=== PATIENT | male | born 1960 | race Two or more races ===

== ENCOUNTER 2023-06-07 18:04 | Inpatient (IN) | payer MEDICAID, OTHER ==
[~2023-06-07] VITALS: Ht 182.9 cm; Wt 118.0 kg
[2023-06-07] MEDS: DOPamine 1600MCG/ML D5W 250 ML IV SCH (18:35)
[2023-06-07] MEDS: SODIUM BICARB 8.4% 50Meq/50ml SYR Vial IV ONE ×4 (18:39→20:03)
[2023-06-07] MEDS: NOREPINEPHRINE 8 MG/250ML KIT 250 ML IV SCH (18:46)
[2023-06-07] MEDS: cefTRIAXone 1GM/50ML D5W 50 ML IV ONE (18:51)
[2023-06-07 18:52] LABS: Urine Bacteria NONE SEEN /hpf (None Seen); Urine Blood TRACE /uL (Negative); Urine Clarity HAZY (Clear); Urine Color Yellow (Yellow); Urine Mucus FEW (None Seen); Urine Protein, UAD 1+ (Negative); Urine Specific Gravity 1.017 (1.001-1.035); Urine Urobilinogen Normal (Negative); Urine WBC 4 /hpf (0 - 3); Urine pH 6.5 (5.0-8.0)
[2023-06-07] MEDS: SODIUM CHLORIDE 0.9% 1,000 ML IV ONE (18:52)
[2023-06-07 18:54] LABS: White Blood Cell 14.7 10^3/uL (4.4-10.8)
[2023-06-07 18:55] LABS: Hematocrit 37.9 % (41.0-53.0); Hemoglobin 11.9 g/dL (13.5-17.5); Mean Corpuscular Hemoglobin 26.9 pg (28.0-32.0); Mean Corpuscular Hgb Conc. 31.3 g/dL (32.0-36.0); Red Blood Cells 4.41 10^6/uL (4.5-5.90); Red Cell Distribution Width 15.7 % (11.8-14.3)
[2023-06-07] MEDS: NOREPINEPHRINE 8 MG/250ML KIT 250 ML IV ONE (18:55)
[2023-06-07 18:57] LABS: Basophils % (manual) 0 (0.0-2.0); Blast Cells 0; Metamyelocytes % 0; Myelocytes % 0; Promyelocytes % 0; Reactive Lymphocytes 0
[2023-06-07 18:58] LABS: Amphetamine Screen, Urine Pos (NEGATIVE); Barbiturate Scree,Urine Neg (NEGATIVE); Benzodiazephine Screen, Urine Neg (NEGATIVE); Cocaine Screen, Urine Neg (NEGATIVE); Opiate Scree,Urine Neg (NEGATIVE); Phencyclidine Screen, Urine Neg (NEGATIVE)
[2023-06-07] MEDS: VANCOMYCIN 1GM/200ML 200 ML IV ONE (18:58)
[2023-06-07 18:59] LABS: Cannabinoid Screen, Urine Neg (NEGATIVE)
[2023-06-07 19:04] LABS: Alanine Aminotransferase 357 U/L (7-40); Albumin 3.2 g/dL (3.2-4.8); Alkaline Phosphatase 69 U/L (46-116); Anion Gap 19 (5-15); Aspartate Aminotransferase 562 U/L (13-40); BUN/Creatinine Ratio 5.2 (10.0-20.0); Bilirubin, Total 0.4 mg/dL (0.2-1.0); Blood Urea Nitrogen 9 mg/dL (9-23); Calcium 9.1 mg/dL (8.5-10.1); Carbon Dioxide 17 mmol/L (20-30); Chloride 104 mmol/L (98-107); Glucose 223 mg/dL (74-106); Potassium 4.3 mmol/L (3.5-5.1); Sodium 140 mmol/L (136-145); Total Protein 5.5 g/dL (5.7-8.2)
[2023-06-07 19:15] LABS: Base Excess -16.2 mmol/L (-2.0-2.0)
[2023-06-07 19:17] LABS: Magnesium 2.8 mg/dL (1.6-2.6)
[2023-06-07 19:22] VITALS: BP 132/65; PULSE 72; RESP 20; TEMP 97.5; O2SAT 99
[2023-06-07 19:22] LABS: Band Neutrophils % (manual) 5; Eosinophils % (manual) 2 (0-7); Lymphocytes % (manual) 35 (10.0-50.0); Monocytes % (manual) 4 (0-12)
[2023-06-07 19:23] VITALS: PULSE 102; RESP 20; O2SAT 99
[2023-06-07 19:23] LABS: Platelet Estimate Adequate
[2023-06-07 19:28] VITALS: PULSE 102; RESP 20; O2SAT 99
[2023-06-07 19:50] LABS: INR 1.32 (0.9-1.15); Partial Thromboplastin Time 54.4 SEC (24.5-34.5); Prothrombin Time 13.6 sec (9.3-11.8)
[2023-06-07 20:00] VITALS: BP 104/61; PULSE 107; RESP 20; O2SAT 98
[2023-06-07 20:18] LABS: Base Excess -8.9 mmol/L (-2.0-2.0)
[2023-06-07] MEDS ORDERED: VANCOMYCIN PER PHARMACY 0 MG IV SCH (21:00)
[2023-06-07] MEDS ORDERED: ACETAMINOPHEN 650 MG RECT SUPP PR PRN (21:00)
[2023-06-07] MEDS ORDERED: ONDANSETRON HCL 4 MG/2 ML VIAL IV PRN (21:00)
[2023-06-07] MEDS: FUROSEMIDE 20 MG/2 ML VIAL IV ONE (21:19)
[2023-06-07 21:26] VITALS: BP 117/84; PULSE 110; RESP 20; O2SAT 97
[2023-06-07] MEDS: SODIUM CHLOR 0.9% PF (SALINE LOCK) 10ML VIAL/SYR IV SCH (22:08)
[2023-06-07] MEDS: HEPARIN SODIUM (PORCINE) 5000 UNITS/ML 1ML VIAL SC SCH (22:13)
[2023-06-07] MEDS ORDERED: NITROGLYCERIN 0.4 MG SL TAB SL PRN (22:15)
[2023-06-07] MEDS ORDERED: MORPHINE SULFATE INJ 2 MG/ml SYRG IV PRN (22:15)
[2023-06-07 23:40] VITALS: BP 99/55; PULSE 123; RESP 20; O2SAT 93
[2023-06-08 01:36] VITALS: BP 68/42; PULSE 113; RESP 20; O2SAT 92
[2023-06-08] MEDS: DEXTROSE 10% 1,000 ML IV SCH (01:44)
[2023-06-08] MEDS: PHENYLEPHRINE IV 250 ML IV SCH (02:00)
[2023-06-08] MEDS: PHENYLEPHRINE IV 250 ML IV ONE (02:04)
[2023-06-08 04:11] VITALS: BP 63/44; PULSE 109; RESP 20; O2SAT 96
[2023-06-08] MEDS: IBUPROFEN 800 MG TAB PO ONE (05:06)
[2023-06-08 05:13] LABS: Basophils # (auto) 0 10 ^3/uL (0-0.2); Eosinophils # (auto) 0.1 10 ^3/uL (0-0.8); Lymphocytes # (auto) 1.3 10 ^3/uL (0.4-5.4); Monocytes # (auto) 0.1 10 ^3/uL (0-1.3); Monocytes % (auto) 1.5 % (0.0-12.0); Nucleated Red Blood Cells % 0.7 %
[2023-06-08 05:21] LABS: Basophils % (auto) 0.3 % (0.0-2.0); Hematocrit 50.6 % (41.0-53.0); Hemoglobin 16.4 g/dL (13.5-17.5); Lymphocytes % (auto) 16.8 % (10.0-50.0); Mean Corpuscular Hgb Conc. 32.5 g/dL (32.0-36.0); Neutrophils # (auto) 6.2 10 ^3/uL (1.6-8.6); Neutrophils % (auto) 80.4 % (37.0-80.0); Red Cell Distribution Width 15.5 % (11.8-14.3); White Blood Cell 7.7 10^3/uL (4.4-10.8)
[2023-06-08 05:38] LABS: Alanine Aminotransferase 800 U/L (7-40); Albumin 3.6 g/dL (3.2-4.8); Alkaline Phosphatase 95 U/L (46-116); Anion Gap 11 (5-15); BUN/Creatinine Ratio 5.8 (10.0-20.0); Bilirubin, Total 0.5 mg/dL (0.2-1.0); Blood Urea Nitrogen 14 mg/dL (9-23); Calcium 8.5 mg/dL (8.7-10.4); Carbon Dioxide 23 mmol/L (20-30); Chloride 108 mmol/L (98-107); Potassium 3.1 mmol/L (3.5-5.1); Sodium 142 mmol/L (136-145); Total Protein 6.6 g/dL (5.7-8.2)
[2023-06-08 05:48] LABS: Aspartate Aminotransferase 1548 U/L (13-40)
[2023-06-08 06:05] VITALS: BP 89/61; PULSE 105; RESP 20; O2SAT 82
[2023-06-08 06:11] LABS: Glucose 107 mg/dL (74-106)
[2023-06-08] MEDS: SODIUM CHLORIDE 0.9% 1,000 ML IV ONE (06:14)
[2023-06-08] MEDS: EPINEPHrine HCL 250 ML IV SCH (06:27)
[2023-06-08] MEDS: VANCOMYCIN 1GM/200ML 200 ML IV SCH (06:53)
[2023-06-08 07:00] VITALS: RESP 20; TEMP 99.3; O2SAT 89
[2023-06-08 07:13] VITALS: BP 55/31
[2023-06-08 07:46] VITALS: PULSE 89
[2023-06-08] MEDS ORDERED: VASOPRESSIN 40 UNITS in D5W 5% 198 ML IV SCH (08:00)
[2023-06-08] MEDS ORDERED: VASOPRESSIN 20 UNITS in SODIUM CHL 0.9% 99 ML IV SCH (08:00)
[2023-06-08] MEDS ORDERED: cefTRIAXone 1GM/50ML D5W 50 ML IV SCH (09:00)
[2023-06-08] MEDS ORDERED: FUROSEMIDE 20 MG/2 ML VIAL IV SCH (10:00)
[2023-06-08] MEDS ORDERED: SODIUM BICARB 8.4% 50Meq/50ml SYR INJ IV ONE (16:51)
[2023-06-08] MEDS ORDERED: EPINEPHrine HCL 1 MG/10 ML SYRG IV ONE (16:51)
[2023-06-08] MEDS ORDERED: DEXTROSE (50%) 50ML SYRG IV ONE (16:51)
[2023-06-08] MEDS ORDERED: DOPamine 1600mCg/ml 400MG/250ml NSorD5 KIT/BAG IV ONE (16:51)
[2023-06-08] MEDS ORDERED: ATROPINE SULF 1 MG/10ml SYR IV ONE (16:51)
== END 2023-06-08 07:55 | DRG 812 ==
LOC: EDBD 18:04 → ER 18:04 → TELE 22:04
PROVIDERS: ADMIT Nurse Practitioner Family; ATTEND Internal Medicine
PROC: 5A1935Z Respiratory Ventilation, Less than 24 Consecutive Hours (ICD-10-PCS; principal; 2023-06-07)
PROC: 5A12012 Performance of Cardiac Output, Single, Manual (ICD-10-PCS; 2023-06-07)
PROC: 5A12012 Performance of Cardiac Output, Single, Manual (ICD-10-PCS; 2023-06-07)
PROC: 0BH17EZ Insertion of Endotracheal Airway into Trachea, Via Natural or Artificial Opening (ICD-10-PCS; 2023-06-07)
DX: T40.411A Poisoning by fentanyl or fentanyl analogs, accidental (unintentional), initial encounter (principal); I46.8 Cardiac arrest due to other underlying condition; E87.20 Acidosis, unspecified; N17.9 Acute kidney failure, unspecified; R73.9 Hyperglycemia, unspecified; I50.9 Heart failure, unspecified; I11.0 Hypertensive heart disease with heart failure; E78.5 Hyperlipidemia, unspecified; I47.20 Ventricular tachycardia, unspecified; F15.10 Other stimulant abuse, uncomplicated; Y92.098 Other place in other non-institutional residence as the place of occurrence of the external cause; E16.2 Hypoglycemia, unspecified
CPT/HCPCS: 31500; 36415; 36556; 36600; 71045; 80053; 80307; 81001; 82805; 82962; 83036; 83605; 83735; 84484; 85007; 85025; 85027; 85610; 85730; 87040; 87070; 87077; 87186; 87205; 92950; 93005; 94002; 94003; 96365; 96368; 99291; G0378; J0171